=== PATIENT | female | born 1935 | race Caucasian/White ===

== ENCOUNTER 2019-12-03 12:28 | Outpatient (CLI) | payer MEDICARE | END 2019-12-03 23:59 | disposition home or self-care (01) | LOC: 64 CT 12:28 | PROVIDERS: ATTEND Family Medicine | DX: S00.03XD Contusion of scalp, subsequent encounter (principal); S09.90XD Unspecified injury of head, subsequent encounter; G31.89 Other specified degenerative diseases of nervous system; X58.XXXD Exposure to other specified factors, subsequent encounter | CPT/HCPCS: 70450 ==